=== PATIENT | female | born 1995 | race Caucasian/White ===

== ENCOUNTER 2016-12-05 20:45 | Emergency (ER) | payer OTHER ==
[2016-12-05 20:57] VITALS: BP 110/73; PULSE 63; TEMP 98; BMI 36.1
--- NOTE | 2016-12-05 20:58 | PDOC ---
History of Present Illness - General History Source: Patient Exam Limitations: No Limitations - History of Present Illness Initial Comments: 12/05/16 21:29 The patient is a 21 year old female who presents to the ED with complaints of dizziness for 6 days. The patient reports intermittent episodes of dizziness that she describes as room spinning. Patient also reports lightheadedness, nausea, and loss of balance associated with present symptoms. She states her symptoms are worsened when she is walking and when she closes her eyes. Patient reports a lump in her neck this morning that progressively worsened to 2 lumps in her neck. She states the lumps are painful and pulsing. Denies recent cold like symptoms. Denies ear ringing. Denies vomiting or diarrhea. Denies chest pain or shortness of breath. PAST MEDICAL HISTORY: no significant history PAST SURGICAL HISTORY: no significant history FAMILY HISTORY: no pertinent history SOCIAL HISTORY: Pt lives with family and is employed. MEDICATIONS: reviewed ALLERGIES: As per nursing notes General: No fevers or chills, no weakness, no weight loss HEENT: No change in vision. No sore throat,. No ear pain CardioVascular: No chest pain or shortness of breath Respiratory:No cough, or wheezing. Gastrointestinal: + nausea. No vomiting, diarrhea or constipation, No rectal bleeding Genitourinary: No dysuria, hematuria, or frequency Musculoskeletal: No joint or muscle pain or swelling Neurologic:+ vertigo. No headache or loss of consciousness Psychiatric: nor depression Skin: No rashes or easy bruising Endocrine: no increased thirst or abnormal weight change Allergic: no skin or latex allergy All other systems reviewed and normal General: Well-nourished well-developed individual, no acute distress HEENT: Throat: Normal, tonsils normal, no erythema or exudate Neck: + Tender lymph node at the Left posterior ossicular chain. Supple, no meningeal signs Eyes::Pupils equal reactive and round, extraocular motion intact Chest: Nontender to palpation Cardiac: S1-S2 normal, regular rate and rhythm, no murmurs rubs or gallops Respiratory: Lungs clear to auscultation bilateral Abdomen: Soft, nondistended, normal bowel sounds, nontender to palpation diffusely Extremities: Warm, dry, no cyanosis, clubbing, or edema Skin: No rashes Neuro: Alert and oriented x3, nonfocal exam, grossly intact, normal gait Psych: Normal mood and affect <Eliceo Oviedo - Last Filed: 12/05/16 21:29> - General History Source: Patient Exam Limitations: No Limitations - History of Present Illness Initial Comments: 12/05/16 21:30 A portion of this note was documented by elan tatum under my direction. I have reviewed the details of the note, within reason, and agree with the documentation. The case summary and management plan written by me. Assessment and plan: This is a 21-year-old female comes in complaining of intermittent vertigo associated with some nausea times approximately one week now. Patient has not taken anything for the symptoms are seen her primary care doctor. Patient has a normal exam. Patient given meclizine and Zofran here in the emergency room and discharged home with prescriptions for both medications. Patient will follow-up with her primary care doctor mid next week if not improved. In addition to the vertigo patient was complaining of a swollen tender lump in the back of her neck. On exam this does appear to be a tender posterior auricular cervical lymph node that is enlarged. Note is not red and there is no increased warmth suggestive of lymphadenitis. Patient will follow-up with her doctor regarding the lymph node if it is not improved within the next several days. <Alfreda Felix I - Last Filed: 12/05/16 21:32> - General Chief Complaint: Headache Stated Complaint: DIZZY, HEADACHE, NAUSEA, NECK LUMP Time Seen by Provider: 12/05/16 20:50 Past History <Eliceo Oviedo - Last Filed: 12/05/16 21:29> - Past Medical History Other medical history: MIGRAINE - Immunization History Immunization Up to Date: Yes - Psycho/Social/Smoking Cessation Hx Anxiety: Yes Suicidal Ideation: No Smoking History: Never smoked Have you smoked in the past 12 months: No Hx Alcohol Use: No Drug/Substance Use Hx: No Substance Use Type: None <Alfreda Felix I - Last Filed: 12/05/16 21:32> - Past Medical History Allergies/Adverse Reactions: Allergies Allergy/AdvReac Type Severity Reaction Status Date / Time No Known Allergies Allergy Verified 10/01/14 20:10 Home Medications: Ambulatory Orders Ibuprofen [Advil -] 800 mg PO TID PRN 12/05/16 Meclizine HCl [Antivert -] 25 mg PO TID #21 tablet 12/05/16 Ondansetron [Zofran Odt -] 4 mg SL TID #12 od.tablet 12/05/16 *Physical Exam - Vital Signs Last Vital Signs Temp Pulse Resp BP Pulse Ox 98.0 F 63 15 110/73 99 12/05/16 20:48 12/05/16 20:48 12/05/16 20:48 12/05/16 20:48 12/05/16 20:48 <Eliceo Oviedo - Last Filed: 12/05/16 21:29> - Vital Signs Last Vital Signs Temp Pulse Resp BP Pulse Ox 98.0 F 63 15 110/73 99 12/05/16 20:48 12/05/16 20:48 12/05/16 20:48 12/05/16 20:48 12/05/16 20:48 <Alfreda Felix I - Last Filed: 12/05/16 21:32> *DC/Admit/Observation/Transfer - Attestations Scribe Attestion: 12/05/16 21:29 Documentation prepared by Eliceo Oviedo, acting as medical videographer for Alfreda Felix MD <Eliceo Oviedo - Last Filed: 12/05/16 21:29> - Discharge Dispostion Admit: No <Alfreda Felix I - Last Filed: 12/05/16 21:32> Diagnosis at time of Disposition: Vertigo - Discharge Dispostion Disposition: HOME Condition at time of disposition: Good - Prescriptions Prescriptions: Meclizine HCl [Antivert -] 25 mg PO TID #21 tablet Ondansetron [Zofran Odt -] 4 mg SL TID #12 od.tablet - Referrals Referrals: Saul Kapadia MD [Primary Care Provider] - - Patient Instructions Printed Discharge Instructions: DI for Vertigo Additional Instructions: For the vertical U can take meclizine 1 tablet as often as every 4-6 hours if needed. If you're not experiencing vertigo U do not need to take the meclizine. If you have nausea you can take Zofran 1 tablet dissolved under your tongue as often as every 8 hours. For the pain from your swollen lymph gland take ibuprofen or Naprosyn as directed on the bottle. Follow-up with your doctor in 4-5 days if not improved. Return to the emergency department immediately with ANY new, persistent or worsening symptoms. Continue any medications as previously prescribed by your physician. You should follow up with your primary doctor as soon as possible regarding today's emergency department visit. . Please make sure your doctor reviews the results of your emergency evaluation. Thank you for coming to the Emergency Department today for your care. It was a pleasure to see you today. Please note that your evaluation is INCOMPLETE until you follow-up with your doctor.
[2016-12-05] MEDS ORDERED: MECLIZINE HCL 25 MG TABLET (FP) PO ONE (21:22)
[2016-12-05] MEDS ORDERED: ONDANSETRON *ODT* 4 MG TABLET SL ONE (21:23)
[2016-12-05] MEDS ORDERED: IBUPROFEN 600 MG TABLET (FP) PO ONE ×2 (21:26→21:30)
[2016-12-05] MEDS ORDERED: MECLIZINE HCL 25 MG TABLET (FP) ONE (21:31)
[2016-12-05] MEDS ORDERED: ONDANSETRON 4 MG TABLET PO ONE (21:31)
== END 2016-12-05 21:38 | disposition home or self-care (01) ==
LOC: FER 20:45
DX: R42 Dizziness and giddiness (principal)
CPT/HCPCS: 99282-25

== ENCOUNTER 2017-12-28 01:12 | Observation (INO) | payer OTHER ==
[2017-12-28 02:13] VITALS: BMI 35.2
[2017-12-28] MEDS ORDERED: ONDANSETRON *ODT* 4 MG TABLET SL ONE (03:32)
--- NOTE | 2017-12-28 03:32 | PDOC ---
History of Present Illness - General Chief Complaint: Pain Stated Complaint: ABD PAIN Time Seen by Provider: 12/28/17 03:32 History Source: Patient - History of Present Illness Initial Comments: 12/28/17 04:50 22 year old female with epigastric pain and nausea, patient Was seen in [facility] emergency Department 10 days ago, patient was diagnosed with gastritis. Patient reports that she was seen by her doctor 2 days ago and was told that she has pharyngitis and patient is currently on amoxicillin. Patient reports no improvement in epigastric pain starting the PPI. Patient came to the ER for acute pain to the epigastrium after eating. Patient reports that she is a [employer] and does not eat fatty meal however eats protein filled diet. Patient also reports bilateral ear pain left eye redness and drainage. Past History - Past Medical History Allergies/Adverse Reactions: Allergies Allergy/AdvReac Type Severity Reaction Status Date / Time No Known Allergies Allergy Verified 12/28/17 02:13 Home Medications: Ambulatory Orders Pantoprazole Sodium [Protonix] 40 mg PO DAILY 12/28/17 COPD: No - Family Disease History Family Disease History: Other: Father (gall stones, kidney stones) - Immunization History Immunization Up to Date: Yes - Suicide/Smoking/Psychosocial Hx Smoking History: Never smoked Have you smoked in the past 12 months: No Information on smoking cessation initiated: No Hx Alcohol Use: No Drug/Substance Use Hx: No Substance Use Type: None *Physical Exam - Vital Signs Last Vital Signs Temp Pulse Resp BP Pulse Ox 98.2 F 79 18 99/61 98 12/28/17 02:11 12/28/17 02:11 12/28/17 02:11 12/28/17 02:11 12/28/17 02:11 - Physical Exam General Appearance: Yes: Appropriately Dressed HEENT: positive: TM Bulging (left bulging > right with effusion. left eye conjuntivitis) Gastrointestinal/Abdominal: positive: Normal Bowel Sounds, Tender (epigastric pain), Soft Extremity: positive: Normal Capillary Refill, Normal Inspection, Normal Range of Motion Integumentary: positive: Normal Color, Dry, Warm Neurologic: positive: Fully Oriented, Alert ED Treatment Course - LABORATORY CBC & Chemistry Diagram: 12/28/17 03:55 12/28/17 03:55 Progress Note - Progress Note Progress Note: A: epigastric pain with nausea r/o cholecystitis; b/l otitis media; left conjunctivitis P; 1. cbc cmp lipase abdominal ultrasound pain control 2. will switch antibiotics to augmentin if d/c home. 3. polymyxin for d/c home *DC/Admit/Observation/Transfer Diagnosis at time of Disposition: Epigastric abdominal pain Conjunctivitis Qualifiers: Conjunctivitis type: acute Acute conjunctivitis type: bacterial Laterality: left Qualified Code(s): H10.32 - Unspecified acute conjunctivitis, left eye Otitis media Qualifiers: Otitis media type: suppurative Chronicity: acute Laterality: bilateral Recurrence: not specified as recurrent Spontaneous tympanic membrane rupture: without spontaneous rupture Qualified Code(s): H66.003 - Acute suppurative otitis media without spontaneous rupture of ear drum, bilateral - Discharge Dispostion Condition at time of disposition: Fair - Referrals Referrals: Saul Kapadia MD [Primary Care Provider] - - Patient Instructions - Post Discharge Activity
[2017-12-28] MEDS ORDERED: ONDANSETRON *ODT* 4 MG TABLET ONE (03:37)
[2017-12-28] MEDS ORDERED: SODIUM CHLORIDE 1,000 ML IV STA (03:47)
[2017-12-28] MEDS ORDERED: FAMOTIDINE 20 MG/50 ML IVPB 20 MG/50 ML MG IVPB ONE ×2 (03:47→03:48)
[2017-12-28 04:17] LABS: BASO % 0.5 % (0-2.0); EOS % 0.9 % (0-4.5); HEMATOCRIT 39.8 % (32.4-45.2); HEMOGLOBIN 13.4 GM/dL (10.7-15.3); LYMPH % 7.5 % (8-40); MCH 30.3 pg (25.7-33.7); MCHC 33.7 g/dl (32.0-36.0); MEAN CELL VOLUME 89.9 fl (80-96); MEAN PLT VOLUME 8.4 fl (7.5-11.1); MONO % 8.4 % (3.8-10.2); NEUT % 82.7 % (42.8-82.8); PLATELET COUNT 295 K/MM3 (134-434); RBC 4.42 M/mm3 (3.60-5.2); RDW 13.2 % (11.6-15.6); WHITE BLOOD COUNT 13.2 K/mm3 (4.0-10.0)
[2017-12-28 04:20] LABS: HCG,QUALITATIVE URINE NEGATIVE; URINE APPEARANCE CLEAR; URINE BILIRUBIN NEGATIVE (NEGATIVE); URINE BLOOD NEGATIVE (NEGATIVE); URINE COLOR YELLOW; URINE GLUCOSE (UA) NEGATIVE (NEGATIVE); URINE KETONE NEGATIVE (NEGATIVE); URINE LEUK ESTERASE NEGATIVE (NEGATIVE); URINE NITRITE NEGATIVE (NEGATIVE); URINE PROTEIN NEGATIVE (NEGATIVE); URINE UROBILINOGEN NEGATIVE mg/dL (0.2-1.0)
[2017-12-28 04:39] LABS: ALBUMIN 3.6 g/dl (3.4-5.0); ALK PHOS 194 U/L (45-117); ANION GAP 6 (8-16); BILIRUBIN,TOTAL 0.6 mg/dL (0.2-1.0); BLOOD UREA NITROGEN 10 mg/dL (7-18); CALCIUM 8.3 mg/dL (8.5-10.1); CHLORIDE 105 mmol/L (98-107); CO2 29 mmol/L (21-32); CREATININE 0.6 mg/dL (0.55-1.02); GLUCOSE,RANDOM 89 mg/dL (74-106); LIPASE 153 U/L (73-393); POTASSIUM 4.1 mmol/L (3.5-5.1); SGOT/AST 305 U/L (15-37); SGPT/ALT 185 U/L (12-78); SODIUM 140 mmol/L (136-145); TOT PROT 7.5 g/dl (6.4-8.2)
[2017-12-28] MEDS ORDERED: ACETAMINOPHEN 325 MG TABLET (FP) PO ONE (05:12)
[2017-12-28] MEDS ORDERED: ACETAMINOPHEN 325 MG TABLET (FP) ONE (05:13)
--- NOTE | 2017-12-28 07:23 | PDOC ---
*Physical Exam - Vital Signs Last Vital Signs Temp Pulse Resp BP Pulse Ox 98.7 F 97 H 14 95/54 98 12/28/17 07:15 12/28/17 07:15 12/28/17 07:15 12/28/17 07:15 12/28/17 07:15 <Maria Elena Valiente - Last Filed: 12/28/17 10:47> - Vital Signs Last Vital Signs Temp Pulse Resp BP Pulse Ox 98.7 F 97 H 14 95/54 98 12/28/17 07:15 12/28/17 07:15 12/28/17 07:15 12/28/17 07:15 12/28/17 07:15 - Physical Exam General Appearance: Yes: Nourished. No: Apparent Distress Respiratory/Chest: positive: Lungs Clear, Normal Breath Sounds. negative: Respiratory Distress, Accessory Muscle Use, Rales, Rhonchi, Wheezing Cardiovascular: positive: Regular Rhythm, Regular Rate, S1, S2 (present). negative: Murmur Gastrointestinal/Abdominal: positive: Normal Bowel Sounds, Tender (RUQ), Flat, Soft. negative: Distended, Guarding, Rebound Extremity: positive: Normal Capillary Refill, Normal Inspection, Normal Range of Motion Integumentary: positive: Normal Color, Dry, Warm Neurologic: positive: circle saw operator II-XII NML intact, Fully Oriented, Alert, Normal Mood/ Affect, Normal Response, Motor Strength 5/5 <Magi Mccray - Last Filed: 12/31/17 08:39> ED Treatment Course - LABORATORY CBC & Chemistry Diagram: 12/28/17 03:55 12/28/17 03:55 - ADDITIONAL ORDERS Additional order review: Laboratory Results 12/28/17 12/28/17 04:00 03:55 Sodium 140 Potassium 4.1 Chloride 105 Carbon Dioxide 29 Anion Gap 6 L BUN 10 Creatinine 0.6 Creat Clearance w eGFR > 60 Random Glucose 89 Calcium 8.3 L Total Bilirubin 0.6 AST 305 H ALT 185 H Alkaline Phosphatase 194 H Total Protein 7.5 Albumin 3.6 Lipase 153 Urine Color Yellow Urine Appearance Clear Urine pH 7.0 Ur Specific [place] 1.011 Urine Protein Negative Urine Glucose (UA) Negative Urine Ketones Negative Urine Blood Negative Urine Nitrite Negative Urine Bilirubin Negative Urine Urobilinogen Negative Ur Leukocyte Esterase Negative Urine HCG, Qual Negative 12/28/17 03:55 RBC 4.42 MCV 89.9 MCHC 33.7 RDW 13.2 MPV 8.4 Neutrophils % 82.7 D Lymphocytes % 7.5 L D Monocytes % 8.4 Eosinophils % 0.9 Basophils % 0.5 - Medications Given in the ED: ED Medications Discontinued Medications Generic Name Dose Route Start Last Admin Trade Name Justen PRN Reason Stop Dose Admin Acetaminophen 650 mg 12/28/17 05:12 12/28/17 05:20 Tylenol - PO 12/28/17 05:13 650 mg ONCE ONE Administration Famotidine/Sodium Chloride 20 mg in 50 mls @ 100 mls/hr 12/28/17 03:47 04:09 Pepcid 20 Mg Premixed Ivpb - IVPB 12/28/17 04:16 100 mls/hr ONCE ONE Administration Sodium Chloride 1,000 mls @ 1,000 mls/hr 12/28/17 03:47 12/28/17 04:09 Normal Saline - IV 12/28/17 04:46 1,000 mls/hr ASDIR STA Administration Ondansetron HCl 4 mg 12/28/17 03:32 12/28/17 03:39 Zofran Odt - SL 12/28/17 03:33 4 mg ONCE ONE Administration <Maria Elena Valiente - Last Filed: 12/28/17 10:47> - LABORATORY CBC & Chemistry Diagram: 12/29/17 06:30 12/29/17 06:30 - ADDITIONAL ORDERS Additional order review: Laboratory Results 12/28/17 12/28/17 04:00 03:55 Sodium 140 Potassium 4.1 Chloride 105 Carbon Dioxide 29 Anion Gap 6 L BUN 10 Creatinine 0.6 Creat Clearance w eGFR > 60 Random Glucose 89 Calcium 8.3 L Total Bilirubin 0.6 AST 305 H ALT 185 H Alkaline Phosphatase 194 H Total Protein 7.5 Albumin 3.6 Lipase 153 Urine Color Yellow Urine Appearance Clear Urine pH 7.0 Ur Specific [place] 1.011 Urine Protein Negative Urine Glucose (UA) Negative Urine Ketones Negative Urine Blood Negative Urine Nitrite Negative Urine Bilirubin Negative Urine Urobilinogen Negative Ur Leukocyte Esterase Negative Urine HCG, Qual Negative 12/28/17 03:55 RBC 4.42 MCV 89.9 MCHC 33.7 RDW 13.2 MPV 8.4 Neutrophils % 82.7 D Lymphocytes % 7.5 L D Monocytes % 8.4 Eosinophils % 0.9 Basophils % 0.5 - Medications Given in the ED: ED Medications Discontinued Medications Generic Name Dose Route Start Last Admin Trade Name Justen PRN Reason Stop Dose Admin Acetaminophen 650 mg 12/28/17 05:12 12/28/17 05:20 Tylenol - PO 12/28/17 05:13 650 mg ONCE ONE Administration Famotidine/Sodium Chloride 20 mg in 50 mls @ 100 mls/hr 12/28/17 03:47 04:09 Pepcid 20 Mg Premixed Ivpb - IVPB 12/28/17 04:16 100 mls/hr ONCE ONE Administration Sodium Chloride 1,000 mls @ 1,000 mls/hr 12/28/17 03:47 12/28/17 04:09 Normal Saline - IV 12/28/17 04:46 1,000 mls/hr ASDIR STA Administration Ondansetron HCl 4 mg 12/28/17 03:32 12/28/17 03:39 Zofran Odt - SL 12/28/17 03:33 4 mg ONCE ONE Administration <Magi Mccray - Last Filed: 12/31/17 08:39> Medical Decision Making - Medical Decision Making 12/28/17 10:47 Dr. Corley was paged and notified via phone service. <Maria Elena Valiente - Last Filed: 12/28/17 10:47> - Medical Decision Making 12/28/17 09:34 Sign out received from Ligia Parson DIESEL ENGINEER. Pt. with abdominal pain, worse after eating and associated vomiting. Pt. states that she has had symptoms for approximately one month. Hx of gallbaldder issues in family. Currently pt. with grossly elevated liver enzymes, WBC of 12.7 and abdominal pain. US negative for stones and ductal dilitation at this time. Bilirubin also WNL. I suspect pt will need further GI work up given her recurrent symptoms. Contacted pt. PCP Dr. Saul Kapadia. Left message. 12/28/17 10:[address] Kapadia. In light of the elevated liver enzymes with negative finding on US and recurrent n/v after eating, agrees that pt. should be admitted to the hospital. Will contact Dr. Sanjay Smith who admits for him. 12/28/17 10:[address] Tara Corley who is continuous conveyor screen drier for Dr. Smith. Case discussed and agrees to admit the patient. Will place in med/surg at this time. <Magi Mccray - Last Filed: 12/31/17 08:39> *DC/Admit/Observation/Transfer <RoccoMaria Elena - Last Filed: 12/28/17 10:47> - Discharge Dispostion Admit: Yes <Magi Mccray - Last Filed: 12/31/17 08:39> Diagnosis at time of Disposition: Epigastric abdominal pain, Elevated liver enzymes Conjunctivitis Qualifiers: Conjunctivitis type: acute Acute conjunctivitis type: bacterial Laterality: left Qualified Code(s): H10.32 - Unspecified acute conjunctivitis, left eye Otitis media Qualifiers: Otitis media type: suppurative Chronicity: acute Laterality: bilateral Recurrence: not specified as recurrent Spontaneous tympanic membrane rupture: without spontaneous rupture Qualified Code(s): H66.003 - Acute suppurative otitis media without spontaneous rupture of ear drum, bilateral - Discharge Dispostion Disposition: HOME Condition at time of disposition: Fair
[2017-12-28] MEDS ORDERED: ONDANSETRON 4 MG/2 ML VIAL IVPUSH PRN (11:52)
--- NOTE | 2017-12-28 11:53 | HP ---
Admitting History and Physical - Primary Care Physician PCP: Saul Kapadia - Admission Chief Complaint: abd pain History of Present Illness: Pt examined in ER-- family member with her She is sitting up in chair Pt came to the ER today for sharp abdominal pain after eating a meal yesterday- - she points to entire right side of abdomen-- felt nauseous and vomited. no abnormal bm She was in [facility] ER about 2 weeks ago for similar complaints. Started on PO Protonix for gastritis-- no labs done in ER that time. She still had right abdominal aching pain afterwards, had seen her PMD - Dr Kapadia 2 days ago for sore throat and fever and started her on Amoxicillin for pharyngitis She has left eye redness, pain and left ear pain Denies travel history Vegan Non alcoholic Non smoker denies eating anything unusual History Source: Patient Limitations to Obtaining History: No Limitations - Smoking History Smoking history: Never smoked Have you smoked in the past 12 months: No - Alcohol/Substance Use Hx Alcohol Use: No Home Medications - Allergies Allergies/Adverse Reactions: Allergies Allergy/AdvReac Type Severity Reaction Status Date / Time No Known Allergies Allergy Verified 12/28/17 02:13 - Home Medications Home Medications: Ambulatory Orders Pantoprazole Sodium [Protonix] 40 mg PO DAILY PRN 12/28/17 Review of Systems - Review of Systems Constitutional: denies: Chills, Fever Gastrointestinal: reports: Abdominal Pain, Nausea. denies: Bloating, Constipation, Diarrhea, Rectal Bleeding Physical Examination Vital Signs: Vital Signs Temperature 98.7 F 12/28/17 07:15 Pulse Rate 97 H 12/28/17 07:15 Respiratory Rate 14 12/28/17 07:15 Blood Pressure 95/54 12/28/17 07:15 O2 Sat by Pulse Oximetry (%) 98 12/28/17 07:15 Constitutional: Yes: No Distress, Calm Eyes: Yes: Tearing (left eye- erythema , no purulent discharge) Cardiovascular: Yes: Regular Rate and Rhythm Respiratory: Yes: CTA Bilaterally Gastrointestinal: Yes: Normal Bowel Sounds, Soft, Tenderness, Tenderness, Epigastrium. No: Tenderness, Rebound Edema: No Labs: CBC, BMP 12/28/17 03:55 12/28/17 03:55 Imaging - Results Ultrasound: Report Reviewed (abdomen sono noted) Problem List - Problems (1) Conjunctivitis Code(s): H10.9 - UNSPECIFIED CONJUNCTIVITIS Qualifiers: Conjunctivitis type: acute Acute conjunctivitis type: bacterial Laterality: left Qualified Code(s): H10.32 - Unspecified acute conjunctivitis , left eye (2) Elevated liver enzymes Code(s): R74.8 - ABNORMAL LEVELS OF OTHER SERUM ENZYMES (3) Epigastric abdominal pain Code(s): R10.13 - EPIGASTRIC PAIN Assessment/Plan PLAN IV fluids start clears trend labs will keep for observation for now as she is nauseous and is unable to eat solid Tobramycin ointment may continue with Amoxicillin GI evaluation check hepatitis panel, GGT VTE Prophylaxis-- SCD
[2017-12-28] MEDS: SODIUM CHLORIDE 0.45% 1,000 ML IV SCH (13:00)
--- NOTE | 2017-12-28 19:46 | CON.GI ---
Consult Consult Specialty:: GI Referred by:: Dr. Tara Corley Reason for Consultation:: Abnormal LFTs, abdominal pain - History of Present Illness Chief Complaint: Upper abdominal pain History of Present Illness: 22F admitted through [facility] for evaluation of upper abdominal pain. The pain seems to worsen after meals. She also explains that she developed a sore throat , fevers to 101.7, pink eye and left throat pain. She saw her PMD this past wednesday who prescribed amoxicillin for her this past wednesday. She alludes to having abdominal issues in the past but denies ever having had EGD or colonoscopy. 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 : [facility] History of Recent Travel: No Home Medications - Allergies Allergies/Adverse Reactions: Allergies Allergy/AdvReac Type Severity Reaction Status Date / Time No Known Allergies Allergy Verified 12/28/17 02:13 - Home Medications Home Medications: Ambulatory Orders Pantoprazole Sodium [Protonix] 40 mg PO DAILY PRN 12/28/17 Family Disease History - Family Disease History Family Disease History: Other: Father (Alive: gallstones), Mother (Alive: " heart problems"), Sister (1, healthy) Other Family History: No family history of colorectal cancer or other GI malignancy Review of Systems - Review of Systems Constitutional: reports: Chills, Fever, Lethargy HENT: reports: Ear Pain, Throat Pain Cardiovascular: denies: Chest Pain Respiratory: denies: SOB Gastrointestinal: reports: Abdominal Pain, Diarrhea (loose BM yesterday), Nausea , Vomiting. denies: Constipation, Melena, Rectal Bleeding, Vomiting Blood Genitourinary: denies: Burning Integumentary: denies: Rash Physical Exam-GI Vital Signs: Vital Signs Temperature 99.2 F H 12/28/17 19:30 Pulse Rate 89 12/28/17 19:30 Respiratory Rate 16 12/28/17 19:30 Blood Pressure 98/58 12/28/17 19:30 O2 Sat by Pulse Oximetry (%) 100 RA 12/28/17 19:30 Constitutional: Yes: Calm Eyes: No: Sclera Icterus Cardiovascular: Yes: Regular Rate and Rhythm Respiratory: Yes: CTA Bilaterally Gastrointestinal Inspection: No: Ascites, Distention ...Auscultate: Yes: Normoactive Bowel Sounds ...Palpate: Yes: Soft. No: Hepatomegaly, Splenomegaly ...Percussion: No: Tympanitic Edema: No (No LE edema) Neurological: Yes: Alert, Oriented Labs: CBC, BMP 12/28/17 03:55 12/28/17 03:55 Hepatic Panel Total Bilirubin 0.6 mg/dL (0.2-1.0) 12/28/17 03:55 AST 305 U/L (15-37) H 12/28/17 03:55 ALT 185 U/L (12-78) H 12/28/17 03:55 Alkaline Phosphatase 194 U/L (45-117) H 12/28/17 03:55 Albumin 3.6 g/dl (3.4-5.0) 12/28/17 03:55 Imaging - Results Ultrasound: Report Reviewed (No ductal dilatation, no stones, hepatocellular disease vs. fatty infiltration.) Problem List - Problems (1) Epigastric abdominal pain Assessment/Plan: Asymptomatic on exam ? if related to LFT abnormality or if LFT's secondary to Abx use or a viral syndrome - Monitor LFTs - Ordered triple phase MRI of abdomen with MRCP - Hepatitis serologies Pending as is Smooth muscle antibiody - Check monospot / consider ID eval - Clear liquids for now - Continue PPI Code(s): R10.13 - EPIGASTRIC PAIN
[2017-12-28] MEDS ORDERED: IBUPROFEN 200 MG TABLET PO PRN (21:28)
[2017-12-28] MEDS ORDERED: AMOXICILLIN 500 MG CAPSULE (FP) PO SCH (22:00)
[2017-12-29] MEDS: TOBRAMYCIN 0.3% OPHTH SOLN 5 ML BOTTLE OS SCH ×3 (01:30→12:14)
[2017-12-29] MEDS: SODIUM CHLORIDE 0.45% 1,000 ML IV SCH ×2 (01:31→12:15)
[2017-12-29 06:09] LABS: HBSAG SCREEN Negative (Negative); HEP B CORE AB, TOT Negative (Negative)
[2017-12-29 06:53] VITALS: BP 108/70; PULSE 98; TEMP 99.2
[2017-12-29 07:37] LABS: BASO % 0.4 % (0-2.0); EOS % 3.2 % (0-4.5); HEMATOCRIT 38.8 % (32.4-45.2); HEMOGLOBIN 12.8 GM/dL (10.7-15.3); LYMPH % 14.3 % (8-40); MCH 29.6 pg (25.7-33.7); MEAN CELL VOLUME 89.7 fl (80-96); MONO % 9.4 % (3.8-10.2); NEUT % 72.7 % (42.8-82.8); PLATELET COUNT 294 K/MM3 (134-434); RBC 4.32 M/mm3 (3.60-5.2); RDW 12.9 % (11.6-15.6)
[2017-12-29 08:09] LABS: CHLORIDE 105 mmol/L (98-107); POTASSIUM 4.1 mmol/L (3.5-5.1); SODIUM 141 mmol/L (136-145)
[2017-12-29 08:21] LABS: ALBUMIN 3.2 g/dl (3.4-5.0); ALK PHOS 185 U/L (45-117); ANION GAP 12 (8-16); BILIRUBIN,TOTAL 0.7 mg/dL (0.2-1.0); BLOOD UREA NITROGEN 3 mg/dL (7-18); CALCIUM 9.2 mg/dL (8.5-10.1); CO2 24 mmol/L (21-32); CREATININE 0.5 mg/dL (0.55-1.02); GLUCOSE,RANDOM 87 mg/dL (74-106); SGOT/AST 133 U/L (15-37); SGPT/ALT 212 U/L (12-78); TOT PROT 7.1 g/dl (6.4-8.2)
[2017-12-29] MEDS ORDERED: PT OWN MED DRAWER 7, Y5N ONE (08:54)
[2017-12-29] MEDS ORDERED: PANTOPRAZOLE 40 MG TABLET (FP) PO SCH (10:00)
--- NOTE | 2017-12-29 10:55 | PN ---
Progress Note, Physician Chief Complaint: see dc summary - Current Medication List Current Medications: Active Medications Sodium Chloride (1/2 Normal Saline) 1,000 mls @ 100 mls/hr IV ASDIR [facility] Last Admin: 12/29/17 01:31 Dose: 100 mls/hr Ibuprofen (Advil -) 200 mg PO Q6H PRN PRN Reason: PAIN LEVEL 1-5 Ondansetron HCl (Zofran Injection) 4 mg IVPUSH Q4H PRN PRN Reason: NAUSEA AND/OR VOMITING Pantoprazole Sodium (Protonix -) 40 mg PO DAILY [facility] Last Admin: 12/29/17 09:32 Dose: 40 mg Tobramycin Sulfate (Tobrex Ophthalmic Solution -) 1 drop OS Q6HPO [facility] Last Admin: 12/29/17 06:48 Dose: 1 drop - Objective Vital Signs: Vital Signs Temperature 99.2 F 12/29/17 06:00 Pulse Rate 98 H 12/29/17 06:00 Respiratory Rate 20 12/29/17 06:00 Blood Pressure 108/70 12/29/17 06:00 O2 Sat by Pulse Oximetry (%) 100 12/29/17 01:20 Labs: CBC, BMP 12/29/17 06:30 12/29/17 06:30 Problem List - Problems (1) Conjunctivitis Code(s): H10.9 - UNSPECIFIED CONJUNCTIVITIS Qualifiers: Conjunctivitis type: acute Acute conjunctivitis type: bacterial Laterality: left Qualified Code(s): H10.32 - Unspecified acute conjunctivitis , left eye (2) Elevated liver enzymes Code(s): R74.8 - ABNORMAL LEVELS OF OTHER SERUM ENZYMES (3) Epigastric abdominal pain Code(s): R10.13 - EPIGASTRIC PAIN
--- NOTE | 2017-12-29 11:12 | DS ---
Physical Examination Vital Signs: Vital Signs Temperature 99.2 F 12/29/17 06:00 Pulse Rate 98 H 12/29/17 06:00 Respiratory Rate 20 12/29/17 06:00 Blood Pressure 108/70 12/29/17 06:00 O2 Sat by Pulse Oximetry (%) 100 12/29/17 01:20 Constitutional: Yes: No Distress, Calm HENT: No: Pharyngeal Erythema, Tonsillar Exudate Cardiovascular: Yes: Regular Rate and Rhythm Respiratory: Yes: CTA Bilaterally Gastrointestinal: Yes: Normal Bowel Sounds, Soft. No: Tenderness Edema: No Labs: CBC, BMP 12/29/17 06:30 12/29/17 06:30 Discharge Summary Reason For Visit: ELEVATED LIVER ENZYMES,EPIGASTRIC PAIN Current Active Problems Conjunctivitis (Acute) Elevated liver enzymes (Acute) Epigastric abdominal pain (Acute) Otitis media (Acute) Hospital Course: Admitted for abdominal pain -- elevated LFT , nausea, unable to tolerate PO Pt was seen by GI Abdominal MRI- normal Liver , no gallstones LFT trending down Strep test negative pt may follow up with GI as an outpt for pending labs stable for dc home Condition: Fair - Instructions Referrals: Saul Kapadia MD [Primary Care Provider] - Kurt Figueroa DO [Staff Physician] - Disposition: HOME - Home Medications Comprehensive Discharge Medication List: Ambulatory Orders Pantoprazole Sodium [Protonix] 40 mg PO DAILY #14 tablet. 12/18/17 Pantoprazole Sodium [Protonix] 40 mg PO DAILY PRN 12/28/17
[2017-12-29] MEDS ORDERED: BENZOCAINE/MENTH/CETYLPYRD CL 1 EACH LOZENGE MM PRN (11:19)
[2017-12-29] MEDS ORDERED: OFLOXACIN 0.3% OTIC SOLUTION 5 ML BOTTLE AS SCH (11:30)
[2017-12-29 16:28] LABS: MITOCHONDRIAL AB 12.8 Units (0.0-20.0)
== END 2017-12-29 13:42 | disposition home or self-care (01) ==
LOC: JER 01:12 → SUPCPDRO 01:12 → JERBED 11:22 → J8W 12-29 00:49
PROVIDERS: ADMIT Internal Medicine; ATTEND Internal Medicine
PROC: 3E033GC Introduction of Other Therapeutic Substance into Peripheral Vein, Percutaneous Approach (ICD-10-PCS; principal; 2017-12-28)
PROC: 3E0337Z Introduction of Electrolytic and Water Balance Substance into Peripheral Vein, Percutaneous Approach (ICD-10-PCS; 2017-12-28)
DX: R10.13 Epigastric pain (principal); H10.32 Unspecified acute conjunctivitis, left eye; H66.003 Acute suppurative otitis media without spontaneous rupture of ear drum, bilateral; R94.5 Abnormal results of liver function studies
CPT/HCPCS: 36415; 74183-TC; 76700-TC; 80053; 81003; 82977; 83516; 83690; 84703; 85025; 86308; 86704; 86706; 86708; 86803; 87070; 87340; 87430; 99285-25; G0378

== ENCOUNTER 2019-03-11 19:45 | Emergency (ER) | payer OTHER ==
[2019-03-11 20:35] VITALS: BP 115/74; PULSE 66; TEMP 98.3; BMI 36.9
[2019-03-11 20:39] LABS: BASO % 0.8 % (0-2.0); HEMATOCRIT 41.5 % (32.4-45.2); HEMOGLOBIN 13.6 GM/dl (10.7-15.3); LYMPH % 23.5 % (8-40); MCH 30.2 pg (25.7-33.7); MCHC 32.8 g/dl (32.0-36.0); MEAN CELL VOLUME 92.3 fl (80-96); MEAN PLT VOLUME 8.7 fl (7.5-11.1); MONO % 7.8 % (3.8-10.2); NEUT % 64.9 % (42.8-82.8); PLATELET COUNT 313 K/MM3 (134-434); RBC 4.49 M/mm3 (3.60-5.2); RDW 13.1 % (11.6-15.6); WHITE BLOOD COUNT 6.9 K/mm3 (4.0-10.8)
--- NOTE | 2019-03-11 20:55 | PDOC ---
Documentation entered by Jazlyn Johnson SCRIBE, acting as scribe for Ceci Leon MD. Ceci Leon MD: This documentation has been prepared by the Elizabeth ansari Xhesika, SCRIBE, under my direction and personally reviewed by me in its entirety. I confirm that the documentation accurately reflects all work, treatment, procedures, and medical decision making performed by me. History of Present Illness - General Chief Complaint: Chest Pain Stated Complaint: UPPER CHEST SHOULDER & ARM PAIN Time Seen by Provider: 03/11/19 20:09 History Source: Patient Exam Limitations: No Limitations - History of Present Illness Initial Comments: 03/11/19 20:31 The patient is a 23 year old female, with no significant past medical history of who presents to the emergency department with 4 days of chest pain. The patient states on Wednesday the chest pain was a sharp pain that lasted for about 5 minutes. The patient notes she endorsed arm pain, upper shoulder pain, and swollen hands at night, secondary to her chest pain, however, it has since resolved. The patient states she went to urgent care on Wednesday, was told it was GERD and was prescribed medication. The patient states she was getting dizzy and nauseous at work last night, however, that self resolved. The patient states she now experiences dull chest pain with SOB when taking deep breaths. The patient denies headache or dizziness. The patient denies fever, chills, nausea, vomit, diarrhea or constipation. The patient denies dysuria, frequency, urgency or hematuria. Allergies:NKDA Past surgical history:None reported Social history: None reported PCP: Saul Siegel Past History - Past Medical History Allergies/Adverse Reactions: Allergies Allergy/AdvReac Type Severity Reaction Status Date / Time No Known Allergies Allergy Verified 12/28/17 02:13 Home Medications: Ambulatory Orders Pantoprazole Sodium [Protonix] 40 mg PO DAILY PRN 12/28/17 COPD: No - Family Disease History Family Disease History: Other: Father (gall stones, kidney stones) - Immunization History Immunization Up to Date: Yes - Suicide/Smoking/Psychosocial Hx Smoking Status: No Smoking History: Never smoked Have you smoked in the past 12 months: No Number of Cigarettes Smoked Daily: 0 Hx Alcohol Use: No Drug/Substance Use Hx: No Substance Use Type: None Review of Systems - Review of Systems Able to Perform ROS?: Yes Comments:: 03/11/19 20:34 GENERAL/CONSTITUTIONAL: No fever or chills. No weakness. HEAD, EYES, EARS, NOSE AND THROAT: No change in vision. No ear pain or discharge. No sore throat. CARDIOVASCULAR: (+) chest pain or shortness of breath. RESPIRATORY: No cough, wheezing, or hemoptysis. GASTROINTESTINAL: No nausea, vomiting, diarrhea or constipation. GENITOURINARY: No dysuria, frequency, or change in urination. MUSCULOSKELETAL: No joint or muscle swelling or pain. No neck or back pain. SKIN: No rash NEUROLOGIC: No headache, vertigo, loss of consciousness, or change in strength/ sensation. ENDOCRINE: No increased thirst. No abnormal weight change. HEMATOLOGIC/LYMPHATIC: No anemia, easy bleeding, or history of blood clots. ALLERGIC/IMMUNOLOGIC: No hives or skin allergy. All Other Systems: Reviewed and Negative *Physical Exam - Vital Signs Last Vital Signs Temp Pulse Resp BP Pulse Ox 98.3 F 66 18 115/74 99 03/11/19 20:06 03/11/19 20:06 03/11/19 20:06 03/11/19 20:06 03/11/19 20:06 - Physical Exam Comments: 03/11/19 20:34 GENERAL: Awake, alert, and fully oriented, in no acute distress HEAD: No signs of trauma EYES: PERRLA, EOMI, sclera anicteric, conjunctiva clear ENT: Auricles normal inspection, hearing grossly normal, nares patent, oropharynx clear without exudates. Moist mucosa NECK: Normal ROM, supple, no lymphadenopathy, JVD, or masses LUNGS: Breath sounds equal, clear to auscultation bilaterally. No wheezes, and no crackles HEART: Regular rate and rhythm, normal S1 and S2, no murmurs, rubs or gallops ABDOMEN: Soft, nontender, normoactive bowel sounds. No guarding, no rebound. No masses EXTREMITIES: Normal range of motion, no edema. No clubbing or cyanosis. No cords, erythema, or tenderness NEUROLOGICAL: Cranial nerves II through XII grossly intact. Normal speech, normal gait ED Treatment Course - LABORATORY CBC & Chemistry Diagram: 03/11/19 20:25 - ADDITIONAL ORDERS Additional order review: 03/11/19 20:25 RBC 4.49 MCV 92.3 MCHC 32.8 RDW 13.1 MPV 8.7 Neutrophils % 64.9 Lymphocytes % 23.5 Monocytes % 7.8 Eosinophils % 3.0 Basophils % 0.8 Medical Decision Making - Medical Decision Making 03/11/19 20:47 Pt presents to the E complaining of a several day history of atypical chest pain. No risk factors for cardiovascular disease. PERC negative. Will check CBC to rule out severe anemia, likely discharge home with follow up with PMD if normal. *DC/Admit/Observation/Transfer Diagnosis at time of Disposition: Chest pain Qualifiers: Chest pain type: other chest pain Qualified Code(s): R07.89 - Other chest pain ; R07.8 - Other chest pain - Discharge Dispostion Disposition: HOME Condition at time of disposition: Good Decision to Admit order: No - Referrals Referrals: Saul Kapadia MD [Primary Care Provider] - - Patient Instructions Printed Discharge Instructions: DI for Chest Pain Additional Instructions: You came to the ED for chest pain. THe EKG and CBC that we did in the ED are normal. You are low risk for heart attack and blood clot in the lung, so it is safe for you to go home, although you should call you primary care doctor on Wednesday to arrange a follow up appointment as soon as possible. Return to the ED for severe chest pain or shortness of breath, passing out, other new or worsening symptoms. - Post Discharge Activity
[2019-03-11] MEDS ORDERED: IBUPROFEN 600 MG TABLET (FP) PO ONE ×2 (21:01→21:04)
--- NOTE | 2019-03-12 15:01 | EKG ---
Test Reason : Blood Pressure : / mmHG Vent. Rate : 059 BPM Atrial Rate : 059 BPM P-R Int : 164 ms QRS Dur : 080 ms QT Int : 416 ms P-R-T Axes : 021 043 032 degrees QTc Int : 411 ms SINUS BRADYCARDIA WITH SINUS ARRHYTHMIA OTHERWISE NORMAL ECG WHEN COMPARED WITH ECG OF 01-OCT-2014 21:40, NO SIGNIFICANT CHANGE WAS FOUND Confirmed by TOÑA CHIU MD ([id number]) on 03/12/2019 3:01:14 PM Referred By: Confirmed By:TOÑA CHIU MD
== END 2019-03-11 21:08 | disposition home or self-care (01) ==
LOC: FER 19:45 → SUPCPDRO 19:45 → FER 21:08
DX: R07.89 Other chest pain (principal)
CPT/HCPCS: 36415; 85025; 93005; 99282-25

== ENCOUNTER 2020-05-05 13:23 | Emergency (ER) | payer OTHER ==
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
[2020-05-05 13:46] VITALS: BP 106/73; PULSE 61; TEMP 98.3; BMI 37.0
== END 2020-05-05 13:56 | disposition home or self-care (01) ==
LOC: FER 13:23
DX: S20.212A Contusion of left front wall of thorax, initial encounter (principal)
CPT/HCPCS: 71046-TC-FY; 99283-25

== ENCOUNTER 2020-05-06 11:35 | Emergency (ER) | payer OTHER ==
[2020-05-06 12:01] VITALS: BP 104/71; PULSE 63; TEMP 98.1; BMI 37.0
[2020-05-06] MEDS ORDERED: SODIUM CHLORIDE 0.9% 1000 ML INFUS.BAG IV ONE (12:20)
[2020-05-06] MEDS ORDERED: ACETAMINOPHEN 1000 MG/100 ML VIAL (NON FORMULARY) IVPB ONE (12:20)
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
[2020-05-06] MEDS ORDERED: ACETAMINOPHEN INJECTION 100 ML IVPB ONE (13:23)
[2020-05-06 13:28] LABS: EOS % 2.3 % (0-4.5); HEMATOCRIT 40.4 % (32.4-45.2); HEMOGLOBIN 13.9 GM/dl (10.7-15.3); LYMPH % 17.3 % (8-40); MCH 30.8 pg (25.7-33.7); MCHC 34.4 g/dl (32.0-36.0); MEAN CELL VOLUME 89.3 fl (80-96); MONO % 7.3 % (3.8-10.2); NEUT % 72.1 % (42.8-82.8); PLATELET COUNT 362 K/MM3 (134-434); RBC 4.52 M/mm3 (3.60-5.2); RDW 13.1 % (11.6-15.6); WHITE BLOOD COUNT 8.6 K/mm3 (4.0-10.8)
[2020-05-06 13:28] LABS: HCG,QUALITATIVE URINE Negative
[2020-05-06] MEDS ORDERED: KETOROLAC TROMETHAMINE 15 MG/ML VIAL IVPUSH ONE (13:31)
[2020-05-06] MEDS ORDERED: METHOCARBAMOL 500 MG TABLET PO ONE (13:31)
[2020-05-06] MEDS ORDERED: METHOCARBAMOL 500 MG TABLET ONE (13:33)
[2020-05-06] MEDS ORDERED: KETOROLAC TROMETHAMINE 15 MG/ML VIAL ONE (13:33)
[2020-05-06 13:51] LABS: CALCIUM 8.8 mg/dl (8.5-10); CREATININE 0.5 mg/dl (0.55-1.3); POTASSIUM 3.8 mmol/L (3.5-5.1); TOT PROT 7.5 g/dl (6.4-8.2)
[2020-05-06 13:57] LABS: ACTIVATED PTT 27.7 SECONDS (25.2-36.5)
[2020-05-06 14:01] LABS: INR 1.2 (0.82-1.09); PROTHROMBIN TIME (PATIENT) 13.4 SEC (10.2-13.0)
[2020-05-06 14:11] LABS: EPITHELIAL CELLS FEW /hpf
== END 2020-05-06 18:00 | disposition home or self-care (01) ==
LOC: FER 11:35
PROC: 3E033GC Introduction of Other Therapeutic Substance into Peripheral Vein, Percutaneous Approach (ICD-10-PCS; principal; 2020-05-06)
DX: S20.212A Contusion of left front wall of thorax, initial encounter (principal); M54.12 Radiculopathy, cervical region; M62.830 Muscle spasm of back; V87.2XXA Person injured in collision between car and pick-up truck or van (traffic), initial encounter
CPT/HCPCS: 36415; 71260-TC; 72125-TC; 73610-TC-RT-FY; 73630-TC-RT-FY; 74177-TC; 80053; 81003; 81015; 84703; 85025; 85610; 85730; 99285-25; J0131

== ENCOUNTER 2022-10-21 04:26 | Day surgery (SDC) | payer BC ==
[2022-10-19 10:31] VITALS: BMI 33.0
[~2022-10-21 04:26] MED LIST: FERRIC SUBSULFATE 500 ML BOTTLE TP ONE; IODINE/POTASSIUM IODIDE 5%/10% 14 ML BOTTLE NR ONE
[2022-10-21] MEDS ORDERED: IBUPROFEN 400 MG TABLET (FP) PO PRN (11:54)
[2022-10-21] MEDS ORDERED: oxyCODONE HCL 5 MG TABLET PO PRN ×2 (11:54→12:38)
[2022-10-21] MEDS ORDERED: ACETAMINOPHEN 325 MG TABLET (FP) PO PRN ×2 (11:54→12:38)
[2022-10-21] MEDS ORDERED: ONDANSETRON 4 MG/2 ML VIAL IVPUSH PRN ×2 (11:55→12:38)
[2022-10-21] MEDS ORDERED: FENTANYL CITRATE/PF 50 MCG/ML VIAL ONE (12:05)
[2022-10-21] MEDS ORDERED: MIDAZOLAM HCL 2 MG/2 ML SINGLE DOSE VIAL ONE (12:05)
[2022-10-21] MEDS ORDERED: PROPOFOL 20 ML ONE (12:19)
[2022-10-21] MEDS ORDERED: IODINE/POTASSIUM IODIDE 5%/10% 14 ML BOTTLE NR ONE (12:20)
[2022-10-21] MEDS ORDERED: ACETIC ACID 500 ML BOTTLE NR ONE (12:20)
[2022-10-21] MEDS ORDERED: PROMETHAZINE HCL 25 MG/1 ML VIAL IVPUSH PRN (12:38)
[2022-10-21 13:34] VITALS: TEMP 98
[2022-10-21 14:04] VITALS: BP 101/60; PULSE 77; RESP 15
== END 2022-10-21 14:00 | disposition home or self-care (01) ==
LOC: JASU-SURG 04:26
PROVIDERS: ATTEND Obstetrics & Gynecology
PROC: 0UBC7ZX Excision of Cervix, Via Natural or Artificial Opening, Diagnostic (ICD-10-PCS; principal; 2022-10-21 13:00)
DX: N87.1 Moderate cervical dysplasia (principal)
CPT/HCPCS: 81025; 88305-TC; 88307-TC; 94760

== ENCOUNTER 2023-05-31 14:23 | Emergency (ER) | payer BC ==
[2023-05-31 14:33] VITALS: BP 104/60; PULSE 60; RESP 15; TEMP 98.5; BMI 34.0
[2023-05-31] MEDS ORDERED: ONDANSETRON 4 MG/2 ML VIAL IVPUSH ONE (14:42)
[2023-05-31] MEDS ORDERED: FAMOTIDINE 20 MG/50 ML IVPB 20 MG/50 ML MG IVPB ONE ×2 (14:42→15:08)
[2023-05-31] MEDS ORDERED: ACETAMINOPHEN 1000 MG/100 ML BAG IVPB ONE (14:42)
[2023-05-31] MEDS ORDERED: SODIUM CHLORIDE 0.9% 1000 ML INFUS.BAG IV ONE (14:42)
[2023-05-31] MEDS ORDERED: MAG HYDROX/AL HYDROX/SIMETH 30 ML UNIT-DOSE CUP PO ONE (14:42)
[2023-05-31] MEDS ORDERED: ACETAMINOPHEN INJECTION 100 ML IVPB ONE (14:52)
[2023-05-31] MEDS ORDERED: MAG HYDROX/AL HYDROX/SIMETH 30 ML UNIT-DOSE CUP ONE (14:52)
[2023-05-31] MEDS ORDERED: ONDANSETRON 4 MG/2 ML VIAL ONE (14:52)
[2023-05-31 15:18] LABS: HCG,QUALITATIVE URINE Negative
[2023-05-31 15:23] LABS: INR 1.12 (0.83-1.09)
[2023-05-31 15:24] LABS: HEMOGLOBIN 14.1 G/dL (10.7-15.3); MCH 30.8 pg (25.7-33.7); MCHC 33.6 g/dl (32.0-36.0); MEAN CELL VOLUME 91.6 fl (80-96); MEAN PLT VOLUME 8.7 fl (7.5-11.1); PLATELET COUNT 290.2 10^3/uL (134-434); RBC 4.58 10^6/uL (3.60-5.2); RDW 14.3 % (11.6-15.6); WHITE BLOOD COUNT 8.4 10^3/uL (4.0-10.8)
[2023-05-31 15:26] LABS: ACTIVATED PTT 29.4 SECONDS (25.2-36.5)
[2023-05-31 15:40] LABS: BILIRUBIN,TOTAL 0.6 mg/dl (0.2-1); BLOOD UREA NITROGEN 8.7 mg/dl (7-18); CALCIUM 9.1 mg/dl (8.5-10.1); CREATININE 0.6 mg/dl (0.6-1.3); POTASSIUM 3.9 mmol/L (3.5-5.1); SGOT/AST 16.2 U/L (15-37); SGPT/ALT 20.4 U/L (7-52); TOT PROT 6.8 g/dl (6.4-8.2)
[2023-05-31 16:17] LABS: PLATELET ESTIMATE ADEQUATE
== END 2023-05-31 16:21 | disposition left against medical advice (07) ==
LOC: SUPCPDRO 14:23 → FER 14:23
PROC: 3E033GC Introduction of Other Therapeutic Substance into Peripheral Vein, Percutaneous Approach (ICD-10-PCS; principal; 2023-05-31)
PROC: 3E033GC Introduction of Other Therapeutic Substance into Peripheral Vein, Percutaneous Approach (ICD-10-PCS; 2023-05-31)
PROC: 3E033NZ Introduction of Analgesics, Hypnotics, Sedatives into Peripheral Vein, Percutaneous Approach (ICD-10-PCS; 2023-05-31)
DX: R10.10 Upper abdominal pain, unspecified (principal); R14.0 Abdominal distension (gaseous); R11.0 Nausea; R19.7 Diarrhea, unspecified; R50.9 Fever, unspecified
CPT/HCPCS: 36415; 80053; 81003; 81015; 83690; 84703; 85027; 85610; 85730; 99284-25

== ENCOUNTER 2023-09-09 17:11 | Emergency (ER) | payer BC ==
[2023-09-09 17:36] VITALS: BP 114/68; PULSE 60; RESP 18; TEMP 97.9; BMI 34.9
[2023-09-09] MEDS ORDERED: ACETAMINOPHEN 325 MG TABLET (FP) PO ONE (17:56)
[2023-09-09 18:30] LABS: ALBUMIN 4.1 g/dl (3.4-5.0); ALK PHOS 94 U/L (45-117); ANION GAP 9 mmol/L (4-13); BILIRUBIN,TOTAL 0.5 mg/dl (0.2-1); CALCIUM 9.7 mg/dl (8.5-10.1); CHLORIDE 103 mmol/L (98-107); CO2 24 mmol/L (21-32); CREATININE 0.6 mg/dl (0.6-1.3); GLUCOSE,RANDOM 80 mg/dl (74-106); POTASSIUM 3.9 mmol/L (3.5-5.1); SGOT/AST 20 U/L (15-37); SGPT/ALT 24 U/L (7-52); SODIUM 136 mmol/L (136-145); TOT PROT 6.5 g/dl (6.4-8.2)
[2023-09-09 18:34] LABS: HEMATOCRIT 41.6 % (32.4-45.2); HEMOGLOBIN 13.7 G/dL (10.7-15.3); MCH 30.4 pg (25.7-33.7); MEAN CELL VOLUME 92.2 fl (80-96); MEAN PLT VOLUME 8.5 fl (7.5-11.1); PLATELET COUNT 315.4 10^3/uL (134-434); RBC 4.51 10^6/uL (3.60-5.2); RDW 13.9 % (11.6-15.6); WHITE BLOOD COUNT 9.3 10^3/uL (4.0-10.8)
[2023-09-09] MEDS ORDERED: ACETAMINOPHEN 325 MG TABLET (FP) ONE (18:35)
[2023-09-09 18:47] LABS: HCG,QUALITATIVE URINE Negative
[2023-09-09 18:56] LABS: EPITHELIAL CELLS 0-5 /hpf
[2023-09-09 19:00] LABS: PLATELET ESTIMATE ADEQUATE
== END 2023-09-09 19:12 | disposition home or self-care (01) ==
LOC: FER 17:11
DX: R07.89 Other chest pain (principal); R06.02 Shortness of breath; R00.1 Bradycardia, unspecified
CPT/HCPCS: 36415; 71046-TC-FY; 80053; 81003; 81015; 84484; 84703; 85027; 85379; 93005

== ENCOUNTER 2023-10-28 12:30 | Emergency (ER) | payer BC ==
[2023-10-28] MEDS ORDERED: ACETAMINOPHEN 1000 MG/100 ML BAG IVPB ONE (12:40)
[2023-10-28] MEDS ORDERED: SODIUM CHLORIDE 0.9% 500 ML INFUS.BAG IV ONE ×2 (12:40→13:43)
[2023-10-28] MEDS ORDERED: ONDANSETRON 4 MG/2 ML VIAL IVPB ONE (12:40)
[2023-10-28 12:47] VITALS: BP 107/74; PULSE 107; RESP 20; TEMP 99.6; BMI 34.0
[2023-10-28] MEDS ORDERED: ONDANSETRON 4 MG/2 ML VIAL ONE (12:53)
[2023-10-28] MEDS ORDERED: ACETAMINOPHEN INJECTION 100 ML IVPB ONE (12:53)
[2023-10-28 13:36] LABS: BILIRUBIN,TOTAL 0.8 mg/dl (0.2-1); CALCIUM 8.5 mg/dl (8.5-10.1); CREATININE 0.7 mg/dl (0.6-1.3); POTASSIUM 3.2 mmol/L (3.5-5.1); TOT PROT 6.6 g/dl (6.4-8.2)
[2023-10-28 13:37] LABS: HEMATOCRIT 43.5 % (32.4-45.2); HEMOGLOBIN 14.8 G/dL (10.7-15.3); MCH 30.7 pg (25.7-33.7); MCHC 33.9 g/dl (32.0-36.0); MEAN CELL VOLUME 90.5 fl (80-96); MEAN PLT VOLUME 8.3 fl (7.5-11.1); PLATELET COUNT 255.5 10^3/uL (134-434); RBC 4.81 10^6/uL (3.60-5.2); RDW 14.2 % (11.6-15.6)
[2023-10-28 13:44] LABS: PLATELET ESTIMATE ADEQUATE
[2023-10-28] MEDS ORDERED: POTASSIUM CHLORIDE ORAL LIQUID 20 MEQ/15 ML PO ONE (16:00)
[2023-10-28] MEDS ORDERED: POTASSIUM CHLORIDE TABS 20 MEQ TABLET.ER (FP) PO ONE ×2 (16:12→16:14)
== END 2023-10-28 17:18 | disposition home or self-care (01) ==
LOC: FER 12:30
PROC: 3E033NZ Introduction of Analgesics, Hypnotics, Sedatives into Peripheral Vein, Percutaneous Approach (ICD-10-PCS; principal; 2023-10-28)
PROC: 3E033GC Introduction of Other Therapeutic Substance into Peripheral Vein, Percutaneous Approach (ICD-10-PCS; 2023-10-28)
DX: R51.9 Headache, unspecified (principal); R11.10 Vomiting, unspecified; R19.7 Diarrhea, unspecified; K52.9 Noninfective gastroenteritis and colitis, unspecified; E86.0 Dehydration; E88.89 Other specified metabolic disorders; Z20.822 Contact with and (suspected) exposure to COVID-19
CPT/HCPCS: 0241U-QW; 36415; 80053; 81003; 81015; 83690; 84703; 85027; 93005; 99284-25

== ENCOUNTER 2024-07-29 10:24 | Emergency (ER) | payer BC ==
[2024-07-29 10:36] VITALS: BP 105/74; PULSE 78; RESP 18; TEMP 98.2; BMI 34.9
[2024-07-29 11:48] LABS: HEMATOCRIT 41.8 % (32.4-45.2); HEMOGLOBIN 13.9 G/dL (10.7-15.3); MCHC 33.2 g/dl (32.0-36.0); MEAN CELL VOLUME 90.5 fl (80-96); MEAN PLT VOLUME 8.3 fl (7.5-11.1); PLATELET COUNT 301.4 10^3/uL (134-434); RBC 4.62 10^6/uL (3.60-5.2); RDW 14.2 % (11.6-15.6); WHITE BLOOD COUNT 7.3 10^3/uL (4.0-10.8)
[2024-07-29 11:54] LABS: ALBUMIN 4.2 g/dl (3.4-5.0); ALK PHOS 82 U/L (45-117); ANION GAP 9 mmol/L (4-13); BILIRUBIN,TOTAL 0.6 mg/dl (0.2-1); CALCIUM 9.2 mg/dl (8.5-10.1); CHLORIDE 105 mmol/L (98-107); CO2 24 mmol/L (21-32); CREATININE 0.5 mg/dl (0.6-1.3); GLUCOSE,RANDOM 96 mg/dl (74-106); SGOT/AST 20 U/L (15-37); SGPT/ALT 34 U/L (7-52); SODIUM 138 mmol/L (136-145); TOT PROT 7.3 g/dl (6.4-8.2)
[2024-07-29 12:08] LABS: EPITHELIAL CELLS 0-5 /hpf; URINE MUCUS FEW
[2024-07-29 13:23] LABS: PLATELET ESTIMATE ADEQUATE
== END 2024-07-29 14:40 | disposition home or self-care (01) ==
LOC: FER 10:24
DX: O20.9 Hemorrhage in early pregnancy, unspecified (principal); Z3A.01 Less than 8 weeks gestation of pregnancy
CPT/HCPCS: 36415; 76801-TC; 80053; 81003; 81015; 84702; 85027; 86850; 86900; 86901; 99284-25